=== PATIENT | female | born 1940 | race Caucasian/White ===

== ENCOUNTER → 2017-09-24 | Outpatient (CLI) | payer MEDICARE, OTHER ==
[~2017-09-24] MED LIST: GADOBUTROL 10 MMOL/10 ML VIAL IV ONE; IOPAMIDOL 300 MG/ML 15ML VIAL IT ONE; LIDOCAINE HCL 1% LOCAL INJ 20 ML VIAL ONE; LORAZEPAM INJ 2 MG/ML VIAL ONE
--- NOTE | 2017-09-24 09:35 | Diagnostic Imaging Report ---
EXAM: DXA BONE DENSITY INDICATIONS: Osteoarthritis COMPARISON: None. FINDINGS: Left femoral neck bone mineral density (BMD) (g/cm2):0.716 Femur T-score (standard deviation relative to young adult mean BMD): -1.2 Femur Z-score (standard deviation relative to age-matched control group):0.9 Lumbar bone mineral density (BMD) (g/cm2):0.877 Lumbar T-score (standard deviation relative to young adult mean BMD): -1.5 Lumbar Z-score (standard deviation relative to age-matched control group):0.9 CONCLUSION: 1. WHO bone mineral classification: Low bone mass (osteopenia). 2. 10 year major osteoporotic fracture risk is 10%, with hip fracture is 1.8%. World Health Organization Classification: *The Z-score is provided for informational purposes. The T-score is preferable for clinical decisions. When comparing exams, a change of >4% is considered statistically significant. WHO RECOMMENDATIONS: Normal \T\ Osteopenia:Calcium supplementation, daily multiple vitamins, and adequate exercise as preventive measures against osteoporosis. Osteoporosis \T\ Severe Osteoporosis:In addition to the above, pharmacologic therapy. Dictated by: Roney Vu M.D. on 09/24/2017 at 9:34 Electronically approved by: Roney Vu M.D. on 09/24/2017 at 9:34
--- NOTE | 2017-09-24 11:07 | Diagnostic Imaging Report ---
Right shoulder arthrogram 09/24/2017 Pre-Procedure Diagnosis: Right shoulder pain Post-procedure Diagnosis:Right shoulder pain Car Wiper: Gonsalo Vu Sedation: None. 1% lidocaine local anesthesia. Radiation Dose: 15.95 mGy (cumulative air kerma) Fluoroscopy time: 0.8 minutes Estimate blood loss: <5 mL Blood administered: None Complications: None Implants/Grafts: None Specimen: None Procedure: Informed consent was obtained and the patient placed supine. A timeout was performed. The right shoulder was prepped and draped in standard sterile fashion. Using fluoroscopic guidance a 22-gauge needle was advanced into the right shoulder joint. Intra-joint position was confirmed with adenoid contrast injection. A 10 mL solution consisting of 5 mL normal saline, 5% 1% lidocaine and 0.1 mL gadolinium contrast was injected to the joint without complication. The needle was removed and a sterile dressing applied. Findings: See right shoulder MRI report for findings. Impression: Successful right shoulder arthrogram. This report was generated with voice-recognition technology. Errors in job printer can occur. Please interpret accordingly and contact a radiologist if there are any questions regarding the report. Signed by: Dr. Roney Vu M.D. on 09/24/2017 11:03 AM
--- NOTE | 2017-09-24 11:07 | Diagnostic Imaging Report ---
Right shoulder arthrogram 09/24/2017 Pre-Procedure Diagnosis: Right shoulder pain Post-procedure Diagnosis:Right shoulder pain School Social Worker: Gonsalo Vu Sedation: None. 1% lidocaine local anesthesia. Radiation Dose: 15.95 mGy (cumulative air kerma) Fluoroscopy time: 0.8 minutes Estimate blood loss: <5 mL Blood administered: None Complications: None Implants/Grafts: None Specimen: None Procedure: Informed consent was obtained and the patient placed supine. A timeout was performed. The right shoulder was prepped and draped in standard sterile fashion. Using fluoroscopic guidance a 22-gauge needle was advanced into the right shoulder joint. Intra-joint position was confirmed with adenoid contrast injection. A 10 mL solution consisting of 5 mL normal saline, 5% 1% lidocaine and 0.1 mL gadolinium contrast was injected to the joint without complication. The needle was removed and a sterile dressing applied. Findings: See right shoulder MRI report for findings. Impression: Successful right shoulder arthrogram. This report was generated with voice-recognition technology. Errors in head operator sulfide can occur. Please interpret accordingly and contact a radiologist if there are any questions regarding the report. Signed by: Dr. Roney Vu M.D. on 09/24/2017 11:03 AM
--- NOTE | 2017-09-24 13:00 | Diagnostic Imaging Report ---
TECHNIQUE: Magnetic resonance imaging of the RIGHT SHOULDER was performed after intra-articular injection of contrast. COMPARISON: None available. HISTORY: Right shoulder pain FINDINGS: MUSCLES AND TENDONS: Rotator Cuff: Tendons: Bursal surface tear of the supraspinatus tendon from the humeral insertion with full-thickness perforation. The tear measures approximately 1 cm in AP dimension. Muscles: No focal muscle atrophy. Biceps Tendon: The long head of the biceps tendon is intact and within the intertubercular groove. GLENOHUMERAL JOINT: Glenoid Labrum: No displaced tear. Articular Cartilage: No focal defect. AC JOINT AND ACROMION: No hypertrophic degenerative changes of the acromioclavicular joint. Subacromial spurring. Bone: No acute fracture. Soft Tissues: Contrast within the subacromial subdeltoid bursa related to the cuff tear. IMPRESSION: Bursal surface tear of the supraspinatus at the humeral insertion with a full-thickness perforation. Subacromial spur. Signed by: Dr. Kevin Horne M.D. on 09/24/2017 12:57 PM
== END ==
LOC: DX 08:11
PROVIDERS: ATTEND Specialist
DX: S46.091A Other injury of muscle(s) and tendon(s) of the rotator cuff of right shoulder, initial encounter (principal); S43.431A Superior glenoid labrum lesion of right shoulder, initial encounter; M19.011 Primary osteoarthritis, right shoulder; M85.862 Other specified disorders of bone density and structure, left lower leg; M85.88 Other specified disorders of bone density and structure, other site
CPT/HCPCS: 23350; 73222; 77002; 77080; A9585; J2001; J2060; Q9967

== ENCOUNTER 2017-12-21 09:57 | Emergency (ER) | payer MEDICARE, OTHER ==
[~2017-12-21] VITALS: Ht 170.2 cm; Wt 81.6 kg
--- OUTSIDE RECORDS SUMMARY | 2017-12-21 10:00 | XMS REPORT ---
Author Author [facility] Address Unknown Phone Unavailable Care Team Providers Care Shoe Dresser Name Role Phone LANDRY PERSAUD Unavailable Unavailable Problems This patient has no known problems. Allergies, Adverse Reactions, Alerts This patient has no known allergies or adverse reactions. Medications This patient has no known medications. Results Test Description Test Time Test Comments Text Results Atomic Results Result Comments BONE DXA DUAL ENERGY [address] [address] Patient Name: NIKKI BANG MR #: [id number] : 1940 Age/Sex: 77/F Req # : [id number] Adm Physician: Ordered by: LANDRY PERSAUD MD Report #: [id number] Location: DX Room/Bed: Procedure: [id number] DX/BONE DXA DUAL ENERGY Exam Date: Exam Time: REPORT STATUS: Signed EXAM: DXA BONE DENSITY INDICATIONS: Osteoarthritis COMPARISON: None. FINDINGS: Left femoral neck bone mineral density (BMD) (g/cm2): 0.716 Femur T-score (standard deviation relative to young adult mean BMD): -1.2 Femur Z-score (standard deviation relative to age-matched control group): 0.9 Lumbar bone mineral density (BMD) (g/cm2): 0.877 Lumbar T-score (standard deviation relative to young adult mean BMD): -1.5 Lumbar Z-score (standard deviation relative to age-matched control group): 0.9 CONCLUSION: 1. WHO bone mineral classification: Low bone mass (osteopenia). 2. 10 year major osteoporotic fracture risk is 10%, with hip fracture is 1.8%. World Health Organization Classification: *The Z-score is provided for informational purposes. The T-score is preferable for clinical decisions. When comparing exams, a change of >4% is considered statistically significant. WHO RECOMMENDATIONS: Normal T Osteopenia: Calcium supplementation, daily multiple vitamins, and adequate exercise as preventive measures against osteoporosis. Osteoporosis T Severe Osteoporosis: In addition to the above, pharmacologic therapy. Dictated by: Leander Vu M.D. on 09/24/2017 at 9:34 Electronically approved by: Leander Vu M.D. on 09/24/2017 at 9:34 Dictated By: LEANDER VU MD 3 Transcribed By: MARILIA on 09/24/17933 COPY TO: LANDRY PERSAUD MD INJECTION ARTHROGRAM SHOULDER [place] [address] Patient Name: NIKKI BANG MR #: [id number] : 1940 Age/Sex: 77/F Req #: [id number] [facility] Physician: Ordered by: LANDRY PERSAUD MD Report #: [id number] Location: Room/Bed: Procedure: [id number] IR/INJECTION ARTHROGRAM SHOULDER Exam Date: 09/24/17 Exam Time: 939 REPORT STATUS: Signed Right shoulder arthrogram 09/24/2017 Pre-Procedure Diagnosis: Right shoulder pain Post-procedure Diagnosis:Right shoulder pain Land Sales Agent: Gonsalo Vu Sedation: None. 1% lidocaine local anesthesia. Radiation Dose: 15.95 mGy ( cumulative air kerma) Fluoroscopy time: 0.8 minutes Estimate blood loss: <5 mL Blood administered: None Complications: None Implants/Grafts: None Specimen: None Procedure: Informed consent was obtained and the patient placed supine. A timeout was performed. The right shoulder was prepped and draped in standard sterile fashion. Using fluoroscopic guidance a 22-gauge needle was advanced into the right shoulder joint. Intra- joint position was confirmed with adenoid contrast injection. A 10 mL solution consisting of 5 mL normal saline, 5% 1% lidocaine and 0.1 mL gadolinium contrast was injected to the joint without complication. The needle was removed and a sterile dressing applied. Findings: See right shoulder MRI report for findings. Impression: Successful right shoulder arthrogram. This report was generated with voice-recognition technology. Errors in instructional systems specialist can occur. Please interpret accordingly and contact a radiologist if there are any questions regarding the report. Signed by: Dr. Leander Vu M.D. on 09/24/2017 11:03 AM Dictated By : LEANDER VU MD 1103 Transcribed By: MARIYA on 09/24/17 1103 COPY TO: LANDRY PERSAUD MD FLURO GUIDE NEEDLE LISBET/LOC BRIA [place] [address] Patient Name: NIKKI BANG MR #: [id number] : 1940 Age/Sex: 77/F Req #: [id number] [facility] Physician: Ordered by: LANDRY PERSAUD MD Report #: [id number] Location: DX Room/Bed: Procedure: [id number] DX/FLURO GUIDE NEEDLE PLMT/LOC DE Exam Date: Exam Time: REPORT STATUS: Signed Right shoulder arthrogram 09/24/2017 Pre-Procedure Diagnosis: Right shoulder pain Post- procedure Diagnosis:Right shoulder pain Land Sales Agent: Gonsalo Vu Sedation : None. 1% lidocaine local anesthesia. Radiation Dose: 15.95 mGy ( cumulative air kerma) Fluoroscopy time: 0.8 minutes Estimate blood loss: <5 mL Blood administered: None Complications: None Implants/Grafts: None Specimen: None Procedure: Informed consent was obtained and the patient placed supine. A timeout was performed. The right shoulder was prepped and draped in standard sterile fashion. Using fluoroscopic guidance a 22-gauge needle was advanced into the right shoulder joint. Intra- joint position was confirmed with adenoid contrast injection. A 10 mL solution consisting of 5 mL normal saline, 5% 1% lidocaine and 0.1 mL gadolinium contrast was injected to the joint without complication. The needle was removed and a sterile dressing applied. Findings: See right shoulder MRI report for findings. Impression: Successful right shoulder arthrogram. This report was generated with voice-recognition technology. Errors in instructional systems specialist can occur. Please interpret accordingly and contact a radiologist if there are any questions regarding the report. Signed by: Dr. Leander Vu M.D. on 09/24/2017 11:03 AM Dictated By : LEANDER VU MD 1103 Transcribed By: MARIYA on 09/24/17 1103 COPY TO: LANDRY PERSAUD MD MRI SHOULDER RIGHT W [place] [address] Patient Name: NIKKI BANG MR #: [id number] : 1940 Age/Sex: 77/F Req # : [id number] Adm Physician: Ordered by: LANDRY PERSAUD MD Report #: [id number] Location: DX Room/Bed: Procedure: [id number] MRI/MRI SHOULDER RIGHT W Exam Date: 09/24/17 Exam Time: 1020 REPORT STATUS: Signed TECHNIQUE: Magnetic resonance imaging of the RIGHT SHOULDER was performed after intra-articular injection of contrast. COMPARISON: None available. HISTORY: Right shoulder pain FINDINGS: MUSCLES AND TENDONS: Rotator Cuff: Tendons: Bursal surface tear of the supraspinatus tendon from the humeral insertion with full-thickness perforation. The tear measures approximately 1 cm in AP dimension. Muscles: No focal muscle atrophy. Biceps Tendon: The long head of the biceps tendon is intact and within the intertubercular groove. GLENOHUMERAL JOINT: Glenoid Labrum: No displaced tear. Articular Cartilage: No focal defect. AC JOINT AND ACROMION: No hypertrophic degenerative changes of the acromioclavicular joint. Subacromial spurring. Bone: No acute fracture. Soft Tissues: Contrast within the subacromial subdeltoid bursa related to the cuff tear. IMPRESSION: Bursal surface tear of the supraspinatus at the humeral insertion with a full- thickness perforation. Subacromial spur. Signed by: Dr. Adin Isabel M.D. on 09/24/2017 12:57 PM Dictated By: ADIN ISABEL MD 1257 Transcribed By: MARIYA on 09/24/17 1257 COPY TO: LANDRY PERSAUD MD
[2017-12-21 10:29] LABS: CLARITY,URINE SL CLOUDY (CLEAR); COLOR,URINE YELLOW (YELLOW)
[2017-12-21 10:30] LABS: BILIRUBIN,URINE NEGATIVE (NEGATIVE); KETONES,URINE NEGATIVE (NEGATIVE); LEUKOCYTE ESTERASE ,URINE 2+ (NEGATIVE); NITRITE,URINE NEGATIVE (NEGATIVE); PROTEIN,URINE DIPSTICK TRACE (NEGATIVE); URINE UROBILINOGEN 0.2 mg/dL (0.2 - 1)
[2017-12-21 10:45] LABS: EPITHELIAL CELLS,URINE RARE /LPF
[2017-12-21 10:47] LABS: BACTERIA,URINE FEW /HPF; RBC,URINE >50 /HPF (0-5); WBC,URINE (MAN) >50 /HPF (0-5)
[2017-12-21] MEDS ORDERED: SODIUM CHLORIDE 0.9% 500ML 500 ML IV ONE (11:00)
--- NOTE | 2017-12-21 12:45 | Diagnostic Imaging Report ---
PROCEDURE:PELVIC ULTRASOUND COMPARISON:None. INDICATIONS:Vaginal Bleeding TECHNIQUE: Grayscale and color transpelvic ultrasound. FINDINGS: Uterus: Anteverted 12.2 x 6.2 x 7 cm. Heterogeneous endometrium without discernible margins. Small volume of fluid within the endometrial canal. Right ovary: 4.3 x 2.3 x 3.1 cm. Left ovary: 5 x 5.8 x 4.8 cm with complex 3.2 x 2.9 x 3.1 cm and 2.5 x 1.9 x 1.9 cm hypoechoic cysts. No free pelvic fluid. CONCLUSION: 1. Irregular endometrium and left ovary. MRI of the pelvis with and without contrast is recommended for further characterization. 2. The study is limited, as the patient could not tolerate transvaginal ultrasound for further evaluation of complex left ovarian cyst and irregular endometrium. Dictated by: Roney Vu M.D. on 12/21/2017 at 12:48 Electronically approved by: Roney Vu M.D. on 12/21/2017 at 12:48
[2017-12-21] MEDS ORDERED: LEVOFLOXACIN 500 MG TAB PO ONE (13:30)
[2017-12-21 14:48] LABS: BASOPHILS % 0.4 % (0.0-1.0); EOSINOPHILS # (AUTO) 0.1 (0.0-0.4); EOSINOPHILS % 0.7 % (0.0-6.0); HEMATOCRIT 37.4 % (34.2-44.1); HEMOGLOBIN 11.2 g/dL (12.0-16.0); LYMPHOCYTES # (AUTO) 2.8 (1.0-3.2); LYMPHOCYTES % 25.1 % (18.0-39.1); MEAN CORPUSCULAR HEMOGLOBIN 27.9 pg (28-32); MEAN CORPUSCULAR HGB CONC 29.9 g/dL (31-35); MEAN CORPUSCULAR VOLUME 93.3 fL (81-99); MONOCYTES # (AUTO) 0.6 (0.2-0.8); MONOCYTES % 5.2 % (4.4-11.3); NEUTROPHILS # (AUTO) 7.5 (2.1-6.9); NEUTROPHILS % 68.1 % (38.7-80.0); PLATELET COUNT 282 x10e3/uL (140-360); RED BLOOD COUNT 4.01 x10e6/uL (3.6-5.1); RED CELL DISTRIBUTION WIDTH 14.5 % (11.7-14.4)
[2017-12-21 15:22] LABS: INR 1.16; PROTHROMBIN TIME 13.9 seconds (11.9-14.5)
[2017-12-21 15:23] LABS: PARTIAL THROMBOPLASTIN TIME 25.2 seconds (23.8-35.5)
[2017-12-21 15:30] LABS: ALANINE AMINOTRANSFERASE 10 IU/L (0-55); ALBUMIN 2.9 g/dL (3.5-5.0); ALBUMIN/GLOBULIN RATIO 0.7 (0.8-2.0); ALKALINE PHOSPHATASE 79 IU/L (40-150); ANION GAP 13.4 mmol/L (8-16); BLOOD UREA NITROGEN 8 mg/dL (7-26); BUN/CREATININE RATIO 12 (6-25); CALCIUM 9.1 mg/dL (8.4-10.2); CARBON DIOXIDE 27 mmol/L (22-29); CHLORIDE 104 mmol/L (98-107); CREATININE, SERUM 0.65 mg/dL (0.57-1.11); EST GLOMERULAR FILTRATION RATE > 60 ML/MIN (60-); GLUCOSE 104 mg/dL (74-118); POTASSIUM 3.4 mmol/L (3.5-5.1); SODIUM 141 mmol/L (136-145)
[2017-12-21 16:04] VITALS: BP 148/91
== END 2017-12-21 16:15 | disposition home or self-care (01) ==
LOC: ER 09:57
DX: N95.0 Postmenopausal bleeding (principal); N30.01 Acute cystitis with hematuria; K21.9 Gastro-esophageal reflux disease without esophagitis
CPT/HCPCS: 36415; 76856; 80053; 81001; 85025; 85610; 85730; 86850; 86900; 99284; J7040

== ENCOUNTER → 2018-01-04 | Outpatient (CLI) | payer MEDICARE, OTHER ==
[~2018-01-04] MED LIST changes: +GADOBENATE DIMEGLUMINE 1 ML IV ONE; -GADOBUTROL 10 MMOL/10 ML VIAL IV ONE; -IOPAMIDOL 300 MG/ML 15ML VIAL IT ONE; -LIDOCAINE HCL 1% LOCAL INJ 20 ML VIAL ONE
--- NOTE | 2018-01-04 12:17 | Diagnostic Imaging Report ---
MRI pelvis Indication: Vaginal bleeding Technique: Multiplanar, multi-sequential MRI of the pelvis was performed both before and after the intravenous administration of 15 cc of gadolinium. Comparison: Pelvic ultrasound 12/21/2017 Findings: Images are significantly motion degraded. Uterus: Present and is atrophic. A fibroid in the posterior body measures 2.4 x 2.2 cm. Endometrium: Measures 10 mm in diameter and contains wispy low T2 signal bands. Junctional zone: Normal. Cervix: Contains multiple Nabothian cysts. Endocervical stroma is normal. Ovaries: The right ovary is not visualized. There is no evidence of a normal left ovary. A multiloculated solid and cystic thick-walled mass in the left adnexa measures approximately 5.2 x 8.5 x 6.0 and cannot be from the uterus. It has components along the posterior aspect that abuts the rectum. Extending superiorly from this mass is a fluid-filled tubular structure measuring 12 mm suggestive of the left ureter. The inferior aspect of this complex contains a curvilinear fluid collection that extends towards the posterior body of the uterus. The tissue planes surrounding this complex and the peritoneal reflections are inflamed and thickened. Bladder: There is posterior mass effect from the left ovarian/adnexal mass. Bowel: Diverticulosis coli of the sigmoid colon. There is mural thickening and hyperemia portions of the sigmoid colon. Lymph nodes: Pelvic lymph nodes measure up to 1.5 cm. Small amount of pelvic ascites. Bones: Heterogeneous marrow signal. No focal osseous lesions. IMPRESSION: 1. Compromised study due to motion degradation. 2. Multiloculated solid and cystic mass in the left pelvis cannot be from the uterus and suspicion of continuity with the rectum. This could represent either an ovarian malignancy or a diverticular abscess. Recommend CT of the abdomen/pelvis with rectal and IV contrast for better delineation of the adjacent structures and to exclude fistulous communication to the bowel. 3. Diverticulosis coli with thickened inflamed tobin of the sigmoid colon suggestive of diverticulitis. Please correlate with signs/symptoms of infection. 4. Left hydroureter as a result of the left adnexal mass. 5. Thickening of the endometrium with multiple internal septations/debris. Endometrial malignancy cannot be excluded. Signed by: Dr. Isaiah Schroeder MD on 01/04/2018 12:13 PM
== END ==
LOC: MRI 09:09
PROVIDERS: ATTEND Obstetrics & Gynecology Obstetrics
DX: R19.09 Other intra-abdominal and pelvic swelling, mass and lump (principal)
CPT/HCPCS: 72197; J2060

== ENCOUNTER → 2018-01-15 | Outpatient (CLI) | payer MEDICARE, OTHER ==
[~2018-01-15] MED LIST changes: +DIATRIZOATE MEGL/DIATRIZOA SOD 120 ML BTL PO ONE; +DIATRIZOATE MEGL/DIATRIZOA SOD 30 ML BTL PO ONE; -GADOBENATE DIMEGLUMINE 1 ML IV ONE; -LORAZEPAM INJ 2 MG/ML VIAL ONE
[2018-01-15 16:33] LABS: BLOOD UREA NITROGEN 19 mg/dL (7-26); BUN/CREATININE RATIO 22 (6-25); CREATININE, SERUM 0.85 mg/dL (0.57-1.11); EST GLOMERULAR FILTRATION RATE > 60 ML/MIN (60-)
== END ==
LOC: CT 15:59
PROVIDERS: ATTEND Obstetrics & Gynecology Obstetrics
DX: R19.00 Intra-abdominal and pelvic swelling, mass and lump, unspecified site (principal)
CPT/HCPCS: 36415; 74177; 82565; 84520; Q9963

== ENCOUNTER → 2018-02-03 | Day surgery (SDC) | payer MEDICARE, OTHER ==
[2018-01-29 13:33] LABS: BASOPHILS % 0.3 % (0.0-1.0); EOSINOPHILS # (AUTO) 0.1 (0.0-0.4); EOSINOPHILS % 0.8 % (0.0-6.0); HEMATOCRIT 38.7 % (34.2-44.1); HEMOGLOBIN 12.5 g/dL (12.0-16.0); LYMPHOCYTES # (AUTO) 3.4 (1.0-3.2); LYMPHOCYTES % 38.4 % (18.0-39.1); MEAN CORPUSCULAR HEMOGLOBIN 29.1 pg (28-32); MEAN CORPUSCULAR HGB CONC 32.3 g/dL (31-35); MEAN CORPUSCULAR VOLUME 90.2 fL (81-99); MONOCYTES # (AUTO) 0.4 (0.2-0.8); MONOCYTES % 4.7 % (4.4-11.3); NEUTROPHILS % 55.7 % (38.7-80.0); PLATELET COUNT 313 x10e3/uL (140-360); RED BLOOD COUNT 4.29 x10e6/uL (3.6-5.1); RED CELL DISTRIBUTION WIDTH 16.2 % (11.7-14.4)
[2018-01-29 13:45] LABS: ANION GAP 14.4 mmol/L (8-16); BLOOD UREA NITROGEN 21 mg/dL (7-26); BUN/CREATININE RATIO 25 (6-25); CALCIUM 9.7 mg/dL (8.4-10.2); CARBON DIOXIDE 27 mmol/L (22-29); CHLORIDE 101 mmol/L (98-107); CREATININE, SERUM 0.83 mg/dL (0.57-1.11); EST GLOMERULAR FILTRATION RATE > 60 ML/MIN (60-); GLUCOSE 118 mg/dL (74-118); POTASSIUM 4.4 mmol/L (3.5-5.1); SODIUM 138 mmol/L (136-145)
--- NOTE | 2018-01-29 14:13 | Diagnostic Imaging Report ---
PROCEDURE: Frontal and lateral views of the chest. COMPARISON: None. INDICATIONS: PREOP CXR FOR GYNECOLOGICAL PROCEDURE FINDINGS: Lines/tubes: None. Lungs: The lungs are well inflated and clear. There is no evidence of pneumonia or pulmonary edema. Pleura: There is no pleural effusion or pneumothorax. Heart and mediastinum: Normal heart size. Mildly tortuous aorta with atherosclerotic calcifications. Bones: No acute bony abnormality. IMPRESSION: 1. No acute cardiopulmonary disease. Dictated by: Ace Garber M.D. on 01/29/2018 at 14:18 Electronically approved by: Ace Garber M.D. on 01/29/2018 at 14:18
[~2018-02-03] MED LIST changes: +ATORVASTATIN CA10 MG PO; +BUMETANIDE1 MG PO; +DEXAMETHASONE SOD PHOS INJ 4 MG/ML VIAL ONE; -DIATRIZOATE MEGL/DIATRIZOA SOD 120 ML BTL PO ONE; -DIATRIZOATE MEGL/DIATRIZOA SOD 30 ML BTL PO ONE; +FENTANYL CITRATE/PF 100MCG/2 ML INJ ONE; +KETOROLAC TROMETHAMINE 30 MG/ML VIAL ONE; +LIDOCAINE HCL (LTA) 4 ML SOLN ONE; +LIDOCAINE HCL 2% LOCAL INJ 5 ML SDV VIAL INJ ONE; +METRONIDAZOLE 500MG/NS 100ML 100 ML IV ONE; +MIDAZOLAM HCL 2 MG/2 ML VIAL ONE; +OMEPRAZOLE40 MG PO; +ONDANSETRON HCL INJ 2 MG/ML VIAL ONE; +PROPOFOL IV EMULSION 10 MG/ML 20 ML VIAL ONE; +SEVOFLURANE INHAL SOLN 250 ML PEN BTL ONE; +SPIRONOLACTONE25 MG PO
--- NOTE | 2018-02-17 13:34 | Operative Report ---
DATE OF PROCEDURE: February 03, 2018 PREOPERATIVE DIAGNOSIS: Postmenopausal bleeding and thickened endometrium. POSTOPERATIVE DIAGNOSIS: Postmenopausal bleeding and thickened endometrium. OPERATIONS PERFORMED 1. Dilatation and curettage. 2. Hysteroscopy with hysteroscopic polypectomy. PRODUCTION OPERATIONS INSPECTOR: None. ANESTHESIA: General. ESTIMATED BLOOD LOSS: Minimal. COMPLICATIONS: None. FINDINGS: Bimanual exam revealed a small anteverted uterus and a left adnexal mass. Hysteroscopic findings included an endometrial polyp. SPECIMENS: Included endometrial curettings with polyp. INDICATIONS: The patient is a 77-year-old postmenopausal female with a left-sided pelvic mass as well as a thickened endometrium and postmenopausal bleeding. DETAILS OF PROCEDURE: The risks, benefits and alternatives of the procedure were discussed with the patient and consent was obtained. The patient was taken to the operating room where general anesthesia was obtained without difficulty. She was prepped and draped in typical sterile fashion in the dorsal lithotomy position in [facility] and a time-out was done. The patient's bladder was drained with a straight catheter prior to the procedure. A weight speculum was then placed in the vagina and the anterior lip of the cervix was grasped with a single-tooth tenaculum. The cervix was then dilated with Hegar dilators up to a #18 Hegar. The TruClear hysteroscope was then introduced into the uterine cavity to the level of the uterine fundus. The uterine cavity was explored with the findings noted above. The TruClear device was then used to morcellate and remove the polyp under direct visualization. A sharp curettage was then performed and all curettings were sent to pathology. A survey of the uterine cavity then revealed a normal-appearing and intact cavity. All instruments were removed from the patient's vagina. The tenaculum sites and uterus were noted to be hemostatic. The patient was awakened and brought to the recovery room in stable condition. Job#: [id number] TOBI
== END | disposition home or self-care (01) ==
LOC: OR 10:29
PROVIDERS: ATTEND Obstetrics & Gynecology Obstetrics
DX: N84.0 Polyp of corpus uteri (principal); R93.8 Abnormal findings on diagnostic imaging of other specified body structures; I10 Essential (primary) hypertension; E78.5 Hyperlipidemia, unspecified; Z01.810 Encounter for preprocedural cardiovascular examination; Z01.812 Encounter for preprocedural laboratory examination; Z01.818 Encounter for other preprocedural examination
CPT/HCPCS: 36415; 58558; 71046; 80048; 85025; 88305; 93005; J1100; J1885; J2001; J2250; J2405

== ENCOUNTER → 2020-10-01 | Outpatient (CLI) | payer MEDICARE, OTHER ==
[~2020-10-01] MED LIST changes: +COVID-19 VACC, MRNA(MODERNA)/PF 100 MCG/0.5 ML VIAL IM ONE; -DEXAMETHASONE SOD PHOS INJ 4 MG/ML VIAL ONE; -FENTANYL CITRATE/PF 100MCG/2 ML INJ ONE; -KETOROLAC TROMETHAMINE 30 MG/ML VIAL ONE; -LIDOCAINE HCL (LTA) 4 ML SOLN ONE; -LIDOCAINE HCL 2% LOCAL INJ 5 ML SDV VIAL INJ ONE; -METRONIDAZOLE 500MG/NS 100ML 100 ML IV ONE; -MIDAZOLAM HCL 2 MG/2 ML VIAL ONE; -ONDANSETRON HCL INJ 2 MG/ML VIAL ONE; -PROPOFOL IV EMULSION 10 MG/ML 20 ML VIAL ONE; -SEVOFLURANE INHAL SOLN 250 ML PEN BTL ONE
== END | disposition home or self-care (01) ==
LOC: VACCPMC 14:30
DX: Z23 Encounter for immunization (principal); Z20.822 Contact with and (suspected) exposure to COVID-19
CPT/HCPCS: 91301

== ENCOUNTER → 2020-10-29 | Outpatient (CLI) | payer OTHER, MEDICARE | END | disposition home or self-care (01) | LOC: VACCPMC 10:49 | DX: Z23 Encounter for immunization (principal); Z20.822 Contact with and (suspected) exposure to COVID-19 | CPT/HCPCS: 91301 ==